=== PATIENT | female | born 1970 | race Caucasian/White ===

== ENCOUNTER → 2020-08-13 16:48 | Outpatient (CLI) | payer OTHER, SELFPAY ==
--- NOTE | 2020-08-13 16:59 | XR_ITS ---
PROCEDURE: XR LUMBAR SPINE MIN 4V CLINICAL INDICATION: LBP Low back pain COMPARISON: No exams were available for comparison FINDINGS: No fracture or dislocation. No lytic or blastic change. There is normal mineralization. There is normal alignment. The disc spaces are well preserved. Other findings:Surgical clips are present in the right upper quadrant right lower quadrant, and pelvic region. Minimal vascular calcification noted of the aorta. There is mild enlargement of the right hepatic lobe IMPRESSION: Negative lumbar spine. Mild enlargement of the right hepatic lobe, possible Reidel lobe Dictated by: Ray Cheatham MD 08/13/2020 18:11 Ray Cheatham MD in [place] 08/13/2020 18:11
[2020-08-13 17:24] LABS: Basophils # 0.1 K/mm3 (0-0.2); Basophils % 0.7 % (0.1-2.0); Eosinophils # 0.2 K/mm3 (0.0-0.4); Eosinophils % 1.8 % (0.1-12.0); Hematocrit 46.4 % (37.0-47.0); Hemoglobin 15.4 g/dL (12.2-16.2); Lymphocytes % 49.1 % (10-50); Mean Corpuscular HGB Conc 33.2 g/dL (31.8-35.4); Mean Corpuscular Hemoglobin 29.8 pg (27.0-31.2); Mean Corpuscular Volume 89.8 fl (81-99); Mean Platelet Volume 9.4 fl (7.4-10.4); Monocytes # 0.4 K/mm3 (0.1-1.0); Neutrophils # 4.6 K/mm3 (1.8-7.8); Neutrophils % 44.5 % (37.0-80.0); Platelet Count 308 K/mm3 (142-424); Red Blood Count 5.17 M/mm3 (4.20-5.40); Red Cell Distribution Width 12.8 % (11.5-17.5); White Blood Count 10.3 K/mm3 (4.8-10.8)
[2020-08-13 18:08] LABS: Chloride 104 mmol/L (98-107); Potassium 4.4 mmoL/L (3.5-5.1); Sodium 139 mmol/L (136-145)
[2020-08-13 18:11] LABS: Alanine Aminotransferase 51 U/L (12-78); Albumin Level 4.8 g/dl (3.5-5.0); Albumin/Globulin Ratio 1.7 (1.1-1.8); Alkaline Phosphatase 114 U/L (38-126); Anion Gap 12.4 mEq/L (5-15); Aspartate Amino Transferase 39 U/L (14-36); Bilirubin,Total 0.4 mg/dl (0.2-1.3); Blood Urea Nitrogen 7 mg/dl (7-17); Calcium 9.8 mg/dl (8.4-10.2); Carbon Dioxide 27 mmol/L (22.0-30.0); Estimated Glomerular Filt Rate 89 ml/min (>60); GFR (African American) 108 ML/MIN (>60); Globulin 2.8 g/dL (1.3-3.2); Glucose 102 mg/dl (74-100); Total Protein,Serum 7.6 g/dl (6.3-8.2)
[2020-08-13 18:15] LABS: Erythrocyte Sedimentation Rate 3 mm/hr (0-20)
[2020-08-13 18:19] LABS: C-Reactive Protein 2.5 mg/L (0-4)
[2020-08-15 12:14] LABS: RA Latex Turbid. <10.0 IU/mL (0.0-13.9)
[2020-08-16 11:08] LABS: PTT-LA 38.5 sec (0.0-51.9); dRVVT 41.6 sec (0.0-47.0)
[2020-08-16 13:41] LABS: Lupus Reflex Interpretation Comment: (.)
[2020-08-16 17:04] LABS: Anti-Centromere B Antibodies <0.2 AI (0.0-0.9); Anti-Jo-1 <0.2 AI (0.0-0.9); Anti-Smith Antibody <0.2 AI (0.0-0.9); Antichromatin Antibodies <0.2 AI (0.0-0.9); Antiscleroderma-70 Antibodies <0.2 AI (0.0-0.9); RNP Antibodies <0.2 AI (0.0-0.9); Sjogren's Anti-SS-A <0.2 AI (0.0-0.9); Sjogren's Anti-SS-B <0.2 AI (0.0-0.9)
[2020-08-17 12:35] LABS: Anti-DNA (DS) Ab Qn <1 IU/mL (0-9)
[2020-08-17 12:36] LABS: Anti-Cyclic Citrullinated Pept 7 units (0-19)
== END ==
PROVIDERS: PCP Family Medicine; Visit Provider Physician Assistant
DX: M54.5 Low back pain (principal); M25.50 Pain in unspecified joint
CPT/HCPCS: 36415; 72110; 80053; 85025; 85613; 85651; 86140; 86200; 86225; 86235; 86431

== ENCOUNTER → 2021-06-28 12:59 | Outpatient (CLI) | payer OTHER, SELFPAY ==
--- NOTE | 2021-06-28 13:00 | MR_ITS ---
FINAL REPORT CLINICAL HISTORY: LOWER BACK PAIN, NO KNOWN INJURY FINDINGS: Multiplanar MR imaging of the lumbar spine was performed without contrast. On the sagittal T2-weighted images, disc degeneration is seen throughout with endplate changes at L4-5 and L5-S1. The vertebral alignment is normal. There is no evidence of fracture. The conus has an unremarkable appearance. L1-2: There is no significant canal stenosis or neural foraminal narrowing. L2-3: There is no significant canal stenosis or neural foraminal narrowing. L3-4: An annular bulge is present. There is no significant canal stenosis or neural foraminal narrowing. L4-5: An annular bulge is present. There is a left foraminal disc protrusion with mild left neural foraminal narrowing. L5-S1: An annular bulge is present. There is a right foraminal annular tear and disc protrusion resulting in right S1 nerve root impingement. There is moderate right and mild left neural foraminal narrowing. IMPRESSION: Right foraminal annular tear and disc protrusion at L5-S1 results in right S1 nerve root impingement. Left foraminal disc protrusion at L4-5 with mild left neural foraminal narrowing. Reviewed, Interpreted and Dictated by Piter Snyder III, MD Transcribed by Winifred Liu Authenticated by Piter Snyder III, MD on 06/28/2021 03:05:10 PM [facility]
== END ==
PROVIDERS: PCP Family Medicine; Visit Provider Family Medicine
DX: M54.50 Low back pain, unspecified (principal)
CPT/HCPCS: 72148; 76376

== ENCOUNTER → 2021-08-09 11:28 | Outpatient (POV) | payer OTHER, SELFPAY ==
[2021-08-09 11:37] VITALS: BP 163/100; PULSE 94; RESP 18; TEMP 36.9; O2SAT 98; BMI 26.6
--- NOTE | 2021-08-09 12:23 | HMH.PMCON ---
Assessment and Plan (1) Degenerative joint disease (DJD) of lumbar spine Status: Acute Category: Medical Code(s): M47.816 - Spondylosis without myelopathy or radiculopathy, lumbar region - Assessment and plan all Dx Assessment and Plan for all problems:: I went over with the patient regarding her lumbar MRI. We discussed at length. I suggest lumbar epidural steroid injection at the L4-5 level. Patient wishes to proceed. I answered her questions. We will set this up for her today. HPI - Data of Consult Consult date: 08/09/21 Requesting Physician: Tolu Bell CRNA - Consult Narrative History of present illness: Ms. Valencia is a 50 year old female who comes our clinic today for initial evaluation regarding chronic low back pain she describes as constant, dull, aching. Also complaining of bilateral hip radicular symptoms. Right greater than left. Patient reports her back pain is 10/10. Patient has a full-time job cleaning apartment buildings. Patient is lumbar MRI on 06/28/2021 shows right foraminal annular tear and disc protrusion at L5-S1 which results in her right S1 nerve root impingement. Also left foraminal disc protrusion at L4-5. I discussed in detail with the patient regarding lumbar epidural steroid injection for some relief. She is very interested in this injection. CC: Tolu Bell CRNA [facility] History I have reviewed the patient's past medical history: Yes Medical History: Reports:: Anxiety Denies:: Cancer, Diabetes Mellitus Type 1, Diabetes Mellitus Type 2, MRSA *Have you ever received a pneumonia vaccine?: No *Have you received a flu vaccine this season?: No Other Medical History: Reports: Arthritis, Other Other Surgeries: Yes: Cholecystectomy, Hernia Repair, Hysterectomy-Partial Amputation: No Fractures: No - *Social History Smoking Status: Current every day smoker Tobacco Type: cigarettes # Packs/Day (cigarettes): 1 Alcohol Intake: never Substance Use Type: denies use *Occupational Status:: employed *Travel in the last 8 weeks: None - Psychiatric History Pschychiatric History:: Reports:: Anxiety Family Hx:: No significant family history Review of Systems - Review of Systems Review of systems:: pertinent systems reviewed and negative unless documented below Meds Home Medications Medication Instructions Recorded Confirmed Type gabapentin 800 mg tablet 800 mg PO TID PRN #90 tab 07/05/21 08/09/21 Rx hydrocodone 5 mg-acetaminophen 325 1 tab PO BID PRN #14 tab 07/05/21 08/09/21 Rx mg tablet Allergies Allergy/AdvReac Type Severity Reaction Status Date / Time codeine [CODEINE] Allergy Unknown S-DIFF. Unverified 07/05/21 15:39 BREATHING Penicillins [PENICILLINS] Allergy Unknown S-DIFF. Unverified 07/05/21 15:39 BREATHING Objective Vital signs: Temp Pulse Resp BP Pulse Ox 98.4 F 94 H 18 163/100 H 98 08/09/21 11:37 08/09/21 11:37 08/09/21 11:37 08/09/21 11:37 08/09/21 11:37 Opioid Risk Tool - Opioid Risk Tool-Female Family hx alcohol abuse: N Family hx illegal drugs: N Family hx rx drug abuse: N Personal hx alcohol abuse: N Personal hx illegal drugs: N Personal hx rx drug abuse: N Age: 45+ Hx of sexual abuse: N Mental health issues-ADD,OCD,Bipolar, etc: N Hx of depression: N Female Risk Score: 0
== END ==
PROVIDERS: Visit Provider Nurse Anesthetist, Certified Registered
DX: M47.816 Spondylosis without myelopathy or radiculopathy, lumbar region (principal)
CPT/HCPCS: 99202; G0463

== ENCOUNTER 2021-08-12 13:00 | Day surgery (SDC) | payer OTHER, SELFPAY ==
[2021-08-12 13:18] VITALS: BP 157/96; PULSE 84; RESP 18; TEMP 36.6; O2SAT 98; BMI 25.0
--- NOTE | 2021-08-12 13:26 | P.PCN_ITS ---
- Procedure Date: 08/12/21 (n) Time: 13:26 Anesthesiologist:: Tolu Bell CRNA Complications:: None Pre-procedure Diagnosis:: During of disc disease lumbar spine multilevels. Lumbar radiculopathy symptoms. Post-procedure Diagnosis:: Same Indications for Procedure:: Very pleasant 50-year-old lady who has degenerative disc disease lumbar spine multilevels. Also radicular symptoms bilateral legs. . We discussed in the clinic in detail lumbar epidural steroid injection. Procedure Details:: Procedure: Lumbar epidural steroid injection under fluoroscopy Informed consent was obtained and the risks and benefits of the procedure were explained to the patient. The patient was taken to the procedure room and noninvasive monitors placed, including noninvasive blood pressure cuff and pulse oximeter. The back was viewed using C-arm Fluoroscopy and prepped using Betadine as a cleansing solution and the L4-L5 interspace was palpated. Skin and subcutaneous tissues were anesthetized using lidocaine 1.5% and a 25-gauge needle. After this, an 18-gauge Touhy epidural needle was placed into the L4-L5 interspace and advanced using fluoroscopic guidance and loss of resistance to air until the epidural space was encountered. After confirmation of needle placement in the epidural space, with dye, a solution containing lidocaine 1.5%, 4 mL and Depo-Medrol 80 mg were incrementally injected into the lumbar epidural space. The patient tolerated the procedure well with no complications. The patient was observed in the Pain Clinic and then discharged home neur ologically intact. Plan and Disposition:: Patient was discharged postinjection. Vital signs normal. No difficulty.
[2021-08-12 13:27] VITALS: BP 112/69; PULSE 81; RESP 20; O2SAT 100
[2021-08-12 13:28] VITALS: BP 112/69; PULSE 86; RESP 20; O2SAT 99
[2021-08-12 13:36] VITALS: BP 149/89; PULSE 76; RESP 20; O2SAT 99
== END 2021-08-12 13:37 | disposition home or self-care (01) ==
LOC: SC.PAINP 13:01
PROVIDERS: PCP Family Medicine; Visit Provider Nurse Anesthetist, Certified Registered
DX: M51.16 Intervertebral disc disorders with radiculopathy, lumbar region (principal); F41.9 Anxiety disorder, unspecified
CPT/HCPCS: 62323; J1040

== ENCOUNTER → 2022-07-06 11:18 | Outpatient (CLI) | payer OTHER, SELFPAY ==
--- NOTE | 2022-07-06 11:18 | MR_ITS ---
FINAL REPORT CLINICAL HISTORY: Right s1 radicular pain + Annular tear. patient fell 2 months ago. right sided buttox pain and right leg pain. numbness in right foot COMPARISON: 06/28/2021 FINDINGS: Multiplanar MR imaging of the lumbar spine was performed without contrast. On the sagittal T2-weighted images, multilevel disc degeneration is seen. There are endplate changes at L4-5. The vertebral alignment is normal. There is no evidence of fracture. No bony mass is identified. The conus is seen at approximately the L1 level and has an unremarkable appearance. T12-L1: There is no significant central canal stenosis or neural foraminal narrowing. L1-2: There is no significant canal stenosis or neural foraminal narrowing. L2-3: There is no significant canal stenosis or neural foraminal narrowing. L3-4: There is no significant canal stenosis or neural foraminal narrowing. L4-5: There is an annular disc bulge without significant canal stenosis or neural foraminal narrowing. L5-S1: There is an annular disc bulge with worsening right foraminal disc protrusion and right S1 nerve root impingement. There is moderate right neural foraminal narrowing. IMPRESSION: Worsening right foraminal disc protrusion at L5-S1 with right S1 nerve root impingement and moderate right neural foraminal narrowing. Reviewed, Interpreted and Dictated by Piter Snyder III, MD Transcribed by Linda Garcia Authenticated and . [facility]
== END ==
PROVIDERS: PCP Family Medicine; Visit Provider Family Medicine
DX: M51.9 Unspecified thoracic, thoracolumbar and lumbosacral intervertebral disc disorder (principal); M51.87 Other intervertebral disc disorders, lumbosacral region
CPT/HCPCS: 72148; 76376

== ENCOUNTER 2023-05-04 09:12 | Outpatient (CLI) | payer OTHER, SELFPAY ==
[2023-05-04 23:30] LABS: Amphetamine/Metha Screen,Urine Negative ng/ml (<1000); Barbiturates Screen,Urine Negative ng/ml (<200); Benzodiazepines Screen,Urine Negative ng/ml (<200); Cannabinoid Screen,Urine Negative ng/ml (<50)
[2023-05-04 23:39] LABS: Cocaine Screen,Urine Negative ng/ml (<300); Methadone Screen,Urine Negative ng/ml (<300); Opiate Screen,Urine Positive ng/ml (<300); Phencyclidine Screen,Urine Negative ng/ml (<25)
== END 2023-05-04 23:59 ==
LOC: LAB.DROPOF 05-05 09:13
PROVIDERS: PCP Family Medicine; Visit Provider Family Medicine
DX: M54.9 Dorsalgia, unspecified (principal); Z79.899 Other long term (current) drug therapy
CPT/HCPCS: 80307

== ENCOUNTER 2024-01-29 09:15 | Outpatient (CLI) | payer OTHER, SELFPAY ==
--- NOTE | 2024-01-29 09:20 | MR_ITS ---
FINAL REPORT CLINICAL HISTORY: Lumbar impingement bilateral leg pain worsening pain traveling down the right leg COMPARISON: 07/06/2022 FINDINGS: Multiplanar MR imaging of the lumbar spine was performed without and with contrast. On the sagittal T2-weighted images, disc degeneration is seen at the L4-5 and L5-S1 levels. There is loss of disc space height at the L5-S1 level as well. The vertebral alignment is normal. There is no evidence of fracture. The conus is seen at approximately the L1 level and has an unremarkable appearance. L1-2: An annular bulge is present. No significant canal stenosis or neuroforaminal narrowing is seen. L2-3: An annular bulge is present. No significant canal stenosis or neuroforaminal narrowing is seen. L3-4: An annular bulge is present. No significant canal stenosis or neuroforaminal narrowing is seen. L4-5: A mild annular bulge is present. There is mild bilateral neural foraminal narrowing. L5-S1: There is a right paracentral disc protrusion, which produces moderate compromise of the right lateral recess seen best on image #28 of series 5. No enhancement at this level is seen after contrast administration. The overall appearance is stable when compared to the prior MRI of June 2022. No abnormal contrast enhancement is identified. IMPRESSION: L5-S1 right paracentral disc protrusion with moderate compromise of the right lateral recess, stable since the prior MRI of June 2022. Reviewed, Interpreted and Dictated by Edis Quintanilla MD Transcribed by Clarissa Longoria Authenticated and [facility]
[2024-01-29] MEDS: GADOTERIDOL INJ 20ML SYRINGE 16 ML IV (09:57)
[2024-01-29] MEDS: SODIUM CHLORIDE 0.9% 10ML SYR (RAD ONLY) 10 ML IV (09:57)
== END 2024-01-29 23:59 | disposition home or self-care (01) ==
LOC: RAD 09:16
PROVIDERS: PCP Family Medicine; Visit Provider Family Medicine
DX: M54.16 Radiculopathy, lumbar region (principal)
CPT/HCPCS: 72158; A9576

== ENCOUNTER 2024-06-30 11:00 | Outpatient (CLI) | payer OTHER, SELFPAY ==
[2024-06-30 22:12] LABS: Erythrocyte Sedimentation Rate 5 mm/hr (0-30)
[2024-06-30 23:11] LABS: C-Reactive Protein 3.8 mg/L (0-4)
[2024-06-30 23:45] LABS: HIV Combo NEGATIVE (Negative)
[2024-06-30 23:54] LABS: Hepatitis C Ab Qual. W/ RFX NEGATIVE (Negative)
[2024-07-02 15:10] LABS: Anti-Centromere B Antibodies <0.2 AI (0.0-0.9); Anti-DNA (DS) Ab Qn <1 IU/mL (0-9); Anti-Jo-1 <0.2 AI (0.0-0.9); Anti-Smith Antibody <0.2 AI (0.0-0.9); Antichromatin Antibodies <0.2 AI (0.0-0.9); Antiscleroderma-70 Antibodies <0.2 AI (0.0-0.9); RNP Antibodies <0.2 AI (0.0-0.9); Sjogren's Anti-SS-A <0.2 AI (0.0-0.9); Sjogren's Anti-SS-B <0.2 AI (0.0-0.9)
== END 2024-06-30 23:59 | disposition home or self-care (01) ==
LOC: LAB.DROPOF 07-02 16:16
PROVIDERS: PCP Family Medicine; Visit Provider Family Medicine
DX: M47.816 Spondylosis without myelopathy or radiculopathy, lumbar region (principal); M54.16 Radiculopathy, lumbar region; M25.551 Pain in right hip; M25.552 Pain in left hip; F41.9 Anxiety disorder, unspecified; Z11.59 Encounter for screening for other viral diseases
CPT/HCPCS: 85651; 86140; 86225; 86235; 86803; 87389